=== PATIENT | female | born 1940 | race Caucasian/White ===

== ENCOUNTER 2018-05-21 08:42 | Inpatient (IN) | payer MEDICARE ==
[~2018-05-21 08:42] MED LIST: CEFAZOLIN 2 Gram 2 GM/50 ML BAG IVPB ONE; CELECOXIB 100 MG CAPSULE PO ONE; FAMOTIDINE 20MG TABLET PO ONE; MECLIZINE 25 MG TABLET PO ONE; METOCLOPRAMIDE 10 MG TABLET PO ONE; VANCOMYCIN HCL 1,000 MG in DEXTROSE 5 % IN WATER 250 ML IVPB ONE
[2018-05-21] MEDS ORDERED: 0.9 % SODIUM CHLORIDE 10 ML VIAL IVP ONE (08:43)
[2018-05-21] MEDS ORDERED: LABETALOL HCL 5MG/ML, 20ML VIAL IV ONE (08:43)
[2018-05-21] MEDS ORDERED: LIDOCAINE 2% MDV (20MG/ML) 20ML VIAL IV ONE (08:43)
[2018-05-21] MEDS ORDERED: ROPIVACAINE HCL (NAROPIN) /PF 5MG/ML 20ML VIAL IV ONE (08:43)
[2018-05-21] MEDS ORDERED: SEVOFLURANE 250 ML INH ONE (08:43)
[2018-05-21] MEDS ORDERED: MIDAZOLAM HCL 2MG/2ML VIAL IV ONE (08:43)
[2018-05-21] MEDS ORDERED: TRANEXAMIC ACID 1,000 MG/10 ML ML IV ONE (08:43)
[2018-05-21] MEDS ORDERED: DEXAMETHASONE 4 MG/ML 1ML VIAL IVP ONE (08:43)
[2018-05-21] MEDS ORDERED: PROPOFOL 10 MG/ML VIAL IV ONE (08:43)
[2018-05-21] MEDS ORDERED: BUPIVACAINE 0.5% W/EPI MPF 30 ML VIAL IVP ONE (08:43)
[2018-05-21] MEDS ORDERED: CLINDAMYCIN PHOS/D5W 900MG 900 MG/50 ML BAG IVPB ONE (08:43)
[2018-05-21] MEDS ORDERED: MORPHINE SULFATE 10 MG/ML VIAL IVP ONE (08:43)
[2018-05-21 09:10] LABS: INR 2.5; PARTIAL THROMBOPLASTIN TIME 37.7 SECONDS (24.5-39.1); PROTHROMBIN TIME (PATIENT) 24.4 SECONDS (9.5-12.1)
[2018-05-21 11:36] LABS: ABO GROUP O; ANTIBODY SCREEN NEGATIVE (NEGATIVE); RH TYPE POSITIVE
[2018-05-21] MEDS ORDERED: HYDROMORPHONE HCL 2 MG/ML VIAL IM PRN (15:08)
[2018-05-21] MEDS ORDERED: NALOXONE 0.4 MG/1 ML VIAL IVP PRN (15:08)
[2018-05-21] MEDS ORDERED: DIPHENHYDRAMINE HCL 25 MG CAPSULE PO PRN (15:08)
[2018-05-21] MEDS ORDERED: HYDROCODONE/APAP 10/325 TABLET PO PRN (15:08)
[2018-05-21] MEDS ORDERED: ACETAMINOPHEN 325 MG TAB PO PRN (15:08)
[2018-05-21] MEDS ORDERED: ACETAMINOPHEN W/ CODEINE 300MG/60MG TABLET PO PRN ×2 (15:08)
[2018-05-21] MEDS ORDERED: ONDANSETRON HCL IV 4 MG/2 ML VIAL IVP PRN (15:08)
[2018-05-21] MEDS ORDERED: AL HYDROX/MAG HYDROX 30ML UD PO PRN (15:08)
[2018-05-21] MEDS ORDERED: BISACODYL 10 MG SUPP RC PRN (15:08)
[2018-05-21] MEDS ORDERED: MAGNESIUM HYDROXIDE 30 ML UDC PO PRN (15:08)
[2018-05-21] MEDS ORDERED: ZOLPIDEM TARTRATE 5 MG TABLET PO PRN (15:08)
[2018-05-21] MEDS ORDERED: POLYETHYLENE GLY 17 GM PACKET PO PRN (15:35)
--- NOTE | 2018-05-21 17:29 | Rehab Evaluation ---
Patient Information - Patient Information Diagnosis: R knee OA Ordered Treatment: PT Evaluate and Treat Status: Initial Evaluation Surgery: Yes (RTKA) Date of Surgery: 05/21/18 Past Medical/Surgical Hx: PAST MEDICAL/SURGICAL HISTORY Past Surgical History tonsils CTR left abd sx unknown PMH - Respiratory Hx Respiratory Disorders Yes Hx Bronchitis Yes Hx Pneumonia Yes Hx Sleep Apnea Yes Hx of CPAP No Hx of SOB Yes: with exertion PMH - Cardiovascular Hx Cardiovascular Disorders Yes Hx Deep Vein Thrombosis Yes: 1969's Hx Hypertension Yes: on meds good control Exercise Tolerance Fair Hx Transient Ischemic Attacks Yes: possibly (TIA) PMH - Neuro Hx Neurological Disorders Yes Hx Transient Ischemic Attacks Yes: possibly (TIA) Hx Weakness Yes: right side mild Comment: poor memory PMH - GI Hx Gastrointestinal Disorders Yes Comment: chronic constipation PMH - Hx Genitourinary Disorders Yes Hx Bladder Problem Yes: leaks wears a pad Hx Renal Disease Yes: no dialysis unsure of stage PMH - Endocrine Hx Endocrine Disorders Yes Hx Diabetes Yes: diet controlled Hx of NIDDM Yes Comment: doesnt check blood sugars PMH - Musculoskeletal Hx Musculoskeletal Disorders Yes Hx Arthritis Yes PMH - Psych Hx Psychiatric Problems Yes Hx Anxiety Yes Hx Depression Yes Hx Suicide Attempt Yes: in past has been hospitalized nithing recent Major Depressive Episode Yes PMH - Hematology/Oncology Hx Hematology/Oncology Yes Disorders Hx Bruising Yes Hx Cancer Yes: skin Hx Clotting Problems Yes: hx of DVT on coumadin Premorbid Status: Detail (The patient was independent with mobility prior to surgery.) Social History: Detail (The patient lives in a one story home with her son with a ramp at the enterance. The patient's bathroom is equipped with a walk in shower with a shower bench, elevated toilet and grab bars by the tub and toilet. The patient has a standard walker and a standard cane.) Precautions: [place], Fall, Other (WBAT on the R LE.) - Time With Patient Total Time Spent With Patient (Min): 30 Treatment Procedures: Detail (Initial Evaluation) Subjective Information - Subjective Information Per Patient (The patient had no complaints of pain. The patient did complain of blurry vision.) Objective Data - Mental Status Patient Orientation: Oriented x3 - ROM Not within normal limits (The patient's R knee was limited status post surgery. All other LE AROM was WNL.) - Strength/Tone Not within normal limits (The patient's R LE strength was not tested secondary to s/p surgery however was functional, the patient was able to complete a SLR. The patient's LE strength was WFL.) - Bed Mobility Independent (The patient was independent with supine to sit.) - Transfers Independent (The patient was independent with sit to and from stand and required CG for pivot transfer to chair and to commode with use of standard walker and 2 L of O2 walker WBAT on the R LE.) - Balance Balance Sitting: Good Balance Standing: Good - Gait Detail (The patient did not ambulate due to low 2 sat levels and complaints of blurry vision. The patient was left up in chair with call light in place and nursing staff was notified.) Therapy Assessment - Therapy Assessment Detail (The patient was independent with bed mobility and transferred with CG. Patient did not ambulate due to low O2 sat levels. Feel the patient will progress well with mobility.) Problem List - Problem List Physical Therapy Problem List: Detail (1) Low O2 sat levels s/p surgery 2) Decreased R knee AROM and decreased R LE strength) Goals - Goals Physical Therapy Goals: 1) The patient will ambulate with appropriate assistive device WBAT on the R LE community distances independently. 2) The patient will ambulate on stairs using proper technique with supervision for safety. 3) The patient will be independent with all transfers. 4) The patient will be independent with TKA HEP Prognosis - Prognosis Good Plan - Plan Physical Therapy Plan: PT 1-2 times a day until all inpatient goals have been met for gait training, transfer training and instruction in HEP.
[2018-05-21] MEDS: HYDROCODONE/APAP 10/325 TABLET PO PRN (18:37)
[2018-05-21] MEDS: GABAPENTIN 300 MG CAPSULE PO SCH ×2 (18:37→21:11)
[2018-05-21] MEDS: POTASSIUM CHLORIDE/D5-0.9%NACL 20 MEQ/1,000 ML BAG IV SCH (18:37)
[2018-05-21] MEDS: CLONAZEPAM 1MG TABLET PO SCH (21:11)
[2018-05-21] MEDS: SIMVASTATIN 20 MG TABLET PO SCH (21:12)
[2018-05-21] MEDS: WARFARIN 1 MG TABLET PO SCH (21:13)
[2018-05-21] MEDS: OLANZAPINE 5MG TABLET PO SCH (21:14)
[2018-05-21] MEDS: DOCUSATE SODIUM 100 MG CAPSULE PO SCH (21:14)
[2018-05-21] MEDS: TRAMADOL HCL 50 MG TABLET PO PRN (21:19)
[2018-05-22] MEDS: POTASSIUM CHLORIDE/D5-0.9%NACL 20 MEQ/1,000 ML BAG IV SCH ×3 (02:12→16:33)
[2018-05-22 06:53] LABS: HEMATOCRIT 35.9 % (35.0-47.0); HEMOGLOBIN 11.4 gm/dl (11.6-16.0)
[2018-05-22 07:00] LABS: INR 3.3; PROTHROMBIN TIME (PATIENT) 31.9 SECONDS (9.5-12.1)
[2018-05-22 07:03] LABS: CREATININE 1.6 mg/dL (0.5-0.9)
[2018-05-22] MEDS: TRAMADOL HCL 50 MG TABLET PO PRN (07:15)
[2018-05-22] MEDS: GABAPENTIN 300 MG CAPSULE PO SCH ×3 (09:18→21:16)
[2018-05-22] MEDS: LORATADINE 10 MG TABLET PO SCH (09:18)
[2018-05-22] MEDS: FERROUS SULFATE 325 MG TAB PO SCH (09:18)
[2018-05-22] MEDS: DOCUSATE SODIUM 100 MG CAPSULE PO SCH ×2 (09:18→21:19)
[2018-05-22] MEDS: ENALAPRIL 5 MG TABLET PO SCH (09:19)
[2018-05-22] MEDS: OXYBUTYNIN CHLORIDE 5MG TABLET PO SCH (09:19)
--- NOTE | 2018-05-22 09:46 | Rehab Evaluation ---
Patient Information - Patient Information Diagnosis: R knee OA Ordered Treatment: OT Evaluate and Treat Status: Initial Evaluation Surgery: Yes (RTKA) Date of Surgery: 05/21/18 Past Medical/Surgical Hx: PAST MEDICAL/SURGICAL HISTORY Past Surgical History tonsils CTR left abd sx unknown PMH - Respiratory Hx Respiratory Disorders Yes Hx Bronchitis Yes Hx Pneumonia Yes Hx Sleep Apnea Yes Hx of CPAP No Hx of SOB Yes: with exertion PMH - Cardiovascular Hx Cardiovascular Disorders Yes Hx Deep Vein Thrombosis Yes: 1969's Hx Hypertension Yes: on meds good control Exercise Tolerance Fair Hx Transient Ischemic Attacks Yes: possibly (TIA) PMH - Neuro Hx Neurological Disorders Yes Hx Transient Ischemic Attacks Yes: possibly (TIA) Hx Weakness Yes: right side mild Comment: poor memory PMH - GI Hx Gastrointestinal Disorders Yes Comment: chronic constipation PMH - Hx Genitourinary Disorders Yes Hx Bladder Problem Yes: leaks wears a pad Hx Renal Disease Yes: no dialysis unsure of stage PMH - Endocrine Hx Endocrine Disorders Yes Hx Diabetes Yes: diet controlled Hx of NIDDM Yes Comment: doesnt check blood sugars PMH - Musculoskeletal Hx Musculoskeletal Disorders Yes Hx Arthritis Yes PMH - Psych Hx Psychiatric Problems Yes Hx Anxiety Yes Hx Depression Yes Hx Suicide Attempt Yes: in past has been hospitalized nithing recent Major Depressive Episode Yes PMH - Hematology/Oncology Hx Hematology/Oncology Yes Disorders Hx Bruising Yes Hx Cancer Yes: skin Hx Clotting Problems Yes: hx of DVT on coumadin Premorbid Status: Detail (The patient was independent with mobility, light meal prep, laundry and light home mgmt prior to surgery. Daughter in law completes all other IADLs and will be assisting pt after discharge.) Social History: Detail (The patient lives in a one story home with her son, daughter in law and 2 college age grandchilden. She has a ramp at the entrance. The patient's bathroom is equipped with a walk in shower with a shower bench and grab bars and an elevated toilet. The patient has a standard walker and a standard cane.) Precautions: [place], Fall, Other (WBAT on the R LE.) - Time With Patient Total Time Spent With Patient (Min): 35 Treatment Procedures: Detail (OT eval low complexity) Subjective Information - Subjective Information Per Patient Objective Data - Pain Pain Present: No (Pt reports no pain.) - Mental Status Patient Orientation: Oriented x3 - Visual Perception Appears within normal limits for therapeutic activities - ROM Within normal limits (Oscar UE AROM WNL) - Strength/Tone Within normal limits (Oscar UE strength WNL) - Coordination Appears within normal limits for therapeutic activities - Transfers Independent (Ind with sit to stand from chair height.) - Balance Balance Sitting: Good Balance Standing: Good - Sensation Intact - ADL's/IADL's Detail (Pt educated and able to demonstrate learning of modified LE dressing techniques including doffing slipper socks and donning pants and tennis shoes. Pt educated re: kitchen and shower safety and modifications, pt and son verbalize understanding.) Therapy Assessment - Therapy Assessment Detail (Pt Ind with modified LE dressing techniques.) Problem List - Problem List Physical Therapy Problem List: Detail (1) Low O2 sat levels s/p surgery 2) Decreased R knee AROM and decreased R LE strength) Occupational Therapy Problem List: Detail (No current IP OT problems identified. ) Goals - Goals Physical Therapy Goals: 1) The patient will ambulate with appropriate assistive device WBAT on the R LE community distances independently. 2) The patient will ambulate on stairs using proper technique with supervision for safety. 3) The patient will be independent with all transfers. 4) The patient will be independent with TKA HEP Occupational Therapy Goals: No current IP OT goals identified. Prognosis - Prognosis Good Plan - Plan Physical Therapy Plan: PT 1-2 times a day until all inpatient goals have been met for gait training, transfer training and instruction in HEP. Occupational Therapy Plan: No further IP OT recommended.
--- NOTE | 2018-05-22 11:25 | Physical Therapy Tx Note ---
Physical Therapy Tx Note - Treatment Note Tolerated: Good Total Time Spent With Patient: 30 Physical Therapy Tx Note: Detail (The patient was independent with supine to and from sit and scooting up in bed. The patient was independent with sit to and from stand transfer. The patient ambulated with standard walker a distance of 134 feet x1, WBAT on the R LE independently, O2 sat. rates remained 91. The patient declined ambulating on stairs due to having a ramp at home. The patient was able to indentify the proper stair climbing technique however. The patient was able to complete TKA HEP independently including ankle pumps, heel slides, SLR, gluteal sets, quad sets and hamstring sets. The paitent did well and has met all inpatient goals. The patient's son was present for PT treatment. Home PT is recommended secondary to the patient has met all inpatient goals.) Physical Therapy Problem List: Detail (1) Low O2 sat levels s/p surgery 2) Decreased R knee AROM and decreased R LE strength) Physical Therapy Goals: 1) The patient will ambulate with appropriate assistive device WBAT on the R LE community distances independently (Goal Met). 2) The patient will ambulate on stairs using proper technique with supervision for safety. (Patient correctly indentified technique- has no stairs at home only a ramp Goal Met). 3) The patient will be independent with all transfers (Goal Met ). 4) The patient will be independent with TKA HEP (Goal Met) Prognosis: Good Physical Therapy Plan: The patient has met all inpatient PT goals and is discharged from inpatient PT.
[2018-05-22] MEDS: HYDROCODONE/APAP 10/325 TABLET PO PRN ×3 (12:07→20:30)
[2018-05-22] MEDS: OLANZAPINE 5MG TABLET PO SCH (21:16)
[2018-05-22] MEDS: CLONAZEPAM 1MG TABLET PO SCH (21:17)
[2018-05-22] MEDS: SIMVASTATIN 20 MG TABLET PO SCH (21:18)
[2018-05-22] MEDS: WARFARIN 1 MG TABLET PO SCH (21:25)
[2018-05-23] MEDS: POTASSIUM CHLORIDE/D5-0.9%NACL 20 MEQ/1,000 ML BAG IV SCH ×2 (04:21→08:36)
[2018-05-23] MEDS: HYDROCODONE/APAP 10/325 TABLET PO PRN (04:22)
[2018-05-23 07:22] LABS: HEMATOCRIT 36.8 % (35.0-47.0); HEMOGLOBIN 12.2 gm/dl (11.6-16.0)
[2018-05-23 08:28] LABS: CREATININE 1.6 mg/dL (0.5-0.9)
--- NOTE | 2018-05-23 08:40 | Operative Note ---
DATE OF SURGERY: 05/21/2018 PREOPERATIVE DIAGNOSIS: Endstage arthrosis of the right knee. POSTOPERATIVE DIAGNOSIS: Endstage arthrosis of the right knee. Surgeon: Alexx Talbot MD OPERATION: Cemented right total knee arthroplasty using [employer]hew Deidre II components, with a size 6 posterior stabilized femur, size 5 stem tibia baseplate, a 9 mm lipped posterior stabilized tibial insert, and a 35 mm all plastic patella. Anesthesia: General. PREPARATION: Chloraprep. INDIVIDUAL CONSIDERATIONS: None. PROCEDURE: The patient was taken to the operating room and placed supine on the operating room table. She had a successful induction with general anesthetic. The right lower extremity was prepped and draped in the usual fashion. The limb was elevated, the tourniquet was inflated to 250 mmHg. The patient had a midline approach to the knee. Sharp dissection carried down through the skin and subcutaneous tissue, small veins were coagulated with the Bovie. A medial arthrotomy was performed, the patella was everted, the knee was flexed. The patient had exposed bone and bone loss medially and the patellofemoral compartment with large osteophytes. The ACL was sacrificed. Provisional anterior meniscectomies were performed and the capsule was released from the medial proximal tibia. An initial femoral pilot plant technician hole was then made free hand. The intramedullary femoral cutting jig was placed. It was cut in 7.0 degrees of valgus and adjusted for rotation, secured with pins for a 10 mm resection. The initial transverse cut was then made. A skid guide was placed in the anterior and posterior pilot plant technician holes. It was found that a size 6 would be appropriate. The anterior and posterior cuts followed by chamfer cuts were made, osteophytes removed, and a size 6 trial was placed and found to fit well. The tibia was brought forward. The remainder of the meniscal remnants were removed with a Bovie. The extraarticular tibial cutting jig was placed. It was cut in neutral with a 3 degree AP slope. It was set for a 9 mm resection keyed off the high lateral side and secured with pins. When cutting the tibia, care was taken to preserve the PCL insertion on the tibia provisionally. After cutting the tibia and removing osteophytes, I was able to fit a size 5, with a 9 mm trial, there was tight flexion and extension. I took an initial 2 mm off and it was still tight, especially in extension. I could see that the PCL was overly tight, so I went ahead and sacrificed the PCL. After sacrificing the PCL to loosen up the posterior capsule and then I took an additional 2 mm off the tibia, I was able to get absolute ligamentous balance in flexion and extension, but now I was going to have to use a posterior stabilized implant. I placed the notch cutting guide on the femoral side, reamed and then box cutting osteotome were used to complete the notch. I then trialed with a posterior stabilized and there was excellent motion stability. Ligamentous balance and rotation alignment were thought to be normal. The tibial keel stamp was impacted. I cut the patella free hand, taking roughly 9 mm, but there was sufficient bone for a 35 mm medial patella and the 3 pilot plant technician holes were drilled. The tourniquet was let down briefly to get bleeders posteriorly and then placed back up again. The knee was then thoroughly irrigated out with pulsatile Betadine and saline to remove any visual or palpable debris. The bony surfaces were then dried. A size 5 stem tibia baseplate was cemented into place, followed by cementing in the size 6 [place] Chrome posterior stabilized femur, followed by impaction of the 9 mm posterior stabilized lipped tibial insert, followed by cementing in the 35 mm patella. The implant surfaces were compressed, excess cement was removed, and after the cement had set, there was excellent motion stability, ligamentous balance and rotation alignment. Patellofemoral tracking were normal. No lateral release was required. Again, thorough irrigation, the tourniquet was let down, hemostasis was obtained with a Bovie. The skin, subq, and periosteum were infiltrated with 30 mL of 0.5% Marcaine with epinephrine. The capsule was then closed with a running #2 Quill, the subq was closed in layers of running 0 Quill, the skin was closed with aylin. She did receive 1 gram of tranexamic acid preoperatively. I mixed 1 gram of tranexamic acid with 30 mL of saline, injected into the knee with a sterile bulky compressive BELLA-type dressing was applied. The patient tolerated the procedure well. The needle and sponge counts were correct. Estimated blood loss was minimal. She was taken back to recovery in good condition. There were no complications. NEISHA
--- NOTE | 2018-05-23 08:50 | Discharge Summary ---
DATE OF ADMISSION: 05/21/2018 DATE OF DISCHARGE: 05/23/2018 DATE OF SURGERY: 05/21/2018 HISTORY: The patient is a 78-year-old female who presents with end-stage arthrosis of her right knee. She was admitted for right total knee arthroplasty. The postop plan initially was to have her stay and go to rehab but she did so well that she is not meeting criteria. Her discharge hemoglobin was 11.4 and did not require transfusion. The plan was to discharge her home in the care of her family. Home PT and visiting nurse has been arranged. She will continue on her Coumadin that she takes chronically and this will also cover her for DVT prophylaxis. She will be given [place] for pain. Visiting nurse will remove her sutures in 2 weeks. She will follow up in my office in 4 weeks. FINAL DIAGNOSES: End-stage arthrosis of the right knee. OPERATION: Cemented right total knee arthroplasty. DISCHARGE CONDITION: Good. NEISHA
[2018-05-23] MEDS: LORATADINE 10 MG TABLET PO SCH (09:44)
[2018-05-23] MEDS: DOCUSATE SODIUM 100 MG CAPSULE PO SCH (09:45)
[2018-05-23] MEDS: FERROUS SULFATE 325 MG TAB PO SCH (09:45)
[2018-05-23] MEDS: GABAPENTIN 300 MG CAPSULE PO SCH (09:45)
[2018-05-23] MEDS: OXYBUTYNIN CHLORIDE 5MG TABLET PO SCH (09:45)
[2018-05-23] MEDS: ENALAPRIL 5 MG TABLET PO SCH (09:46)
[2018-05-23] MEDS: TRAMADOL HCL 50 MG TABLET PO PRN (09:46)
[2018-05-23] MEDS ORDERED: WARFARIN 1 MG TABLET PO SCH (22:00)
== END 2018-05-23 10:20 | disposition home health service (06) ==
LOC: SUR 08:42 → MEDSURG 18:01 → SUR 18:01
PROVIDERS: ADMIT Orthopaedic Surgery; ATTEND Orthopaedic Surgery
DX: M17.11 Unilateral primary osteoarthritis, right knee (principal); I10 Essential (primary) hypertension; E78.00 Pure hypercholesterolemia, unspecified; Z79.01 Long term (current) use of anticoagulants; G47.33 Obstructive sleep apnea (adult) (pediatric); E11.9 Type 2 diabetes mellitus without complications; N18.9 Chronic kidney disease, unspecified; Z86.718 Personal history of other venous thrombosis and embolism; Z86.73 Personal history of transient ischemic attack (TIA), and cerebral infarction without residual deficits
CPT/HCPCS: 80048; 85014; 85018; 85610; 85730; 86850; 86900; 86901; 94760; 97110; 97530; J2270; J2405; J3480; J3490; J7060